=== PATIENT | female | born 1970 | race American Indian/Alaskan Native ===

== ENCOUNTER 2020-05-02 07:22 | Day surgery (SDC) | payer BC ==
[~2020-05-02 07:22] MED LIST: ACETAMINOPHEN 500 MG TAB PO SCH; LACTATED RINGERS 1,000 ML IV SCH; MIDAZOLAM 2 MG/2 ML INJ IV NR
[2020-05-02] MEDS ORDERED: HYDROcodone/ACETAMINOPHEN 5-325 MG TAB PO PRN (08:15)
[2020-05-02] MEDS ORDERED: ONDANSETRON 4 MG/2 ML INJ IV PRN (08:15)
[2020-05-02] MEDS ORDERED: fentaNYL 100 MCG/2 ML INJ IV PRN (08:15)
--- NOTE | 2020-05-02 08:15 | Anesthesia Day of Surgery ---
Anesthesia Day of Surgery - Day of Surgery Patient Examined: Yes Patient H&P Reviewed: Yes Patient is NPO: Yes
--- NOTE | 2020-05-02 08:15 | Anesthesia Consultation ---
Anesthesia Consult and Med Hx Date of service: 05/02/20 - Airway Anesthetic Teeth Evaluation: Good ROM Head & Neck: Adequate Mental/Hyoid Distance: Adequate Mallampati Class: Class II Intubation Access Assessment: Probably Good - Pre-Operative Health Status ASA Pre-Surgery Classification: ASA2 Proposed Anesthetic Plan: General, MAC - Pre-Anesthesia Comment Pre-Anesthesia Comments: MAC vs GA pending discussion with surgeon regarding extent of intended procedure. - Pulmonary Hx Smoking: No Hx Respiratory Symptoms: No Hx Sleep Apnea: No - Cardiovascular System Hx Hypertension: Yes (took amlodipine this morning) Hx Heart Attack/AMI: No - Central Nervous System CVA: No - Gastrointestinal Hx Gastroesophageal Reflux Disease: No - Endocrine Hx Renal Disease: No Hx Liver Disease: No Hx Non-Insulin Dependent Diabetes: No Hx Thyroid Disease: No - Hematic Hx Anemia: Yes (Fe supplements) - Other Systems Hx Obesity: No - Additional Comments Anesthesia Medical History Comments: No hx anesthetic complications.
[2020-05-02] MEDS ORDERED: ceFAZolin/STERILE WATER 2 GM/20 ML SYRINGE IV NR (11:00)
[2020-05-02] MEDS ORDERED: HYDROmorphone 1 MG/1 ML INJ ONE (11:34)
[2020-05-02] MEDS ORDERED: MIDAZOLAM 2 MG/2 ML INJ ONE (11:34)
[2020-05-02] MEDS ORDERED: propofoL 200 MG/20 ML VIAL IV ONE ×2 (11:34→12:39)
[2020-05-02] MEDS ORDERED: LIDOCAINE MPF (2%) 20 MG/1 ML VIAL 5 ML ONE (11:35)
[2020-05-02] MEDS ORDERED: LIDOCAINE (1%) 10 MG/1 ML VIAL 20 ML MDV ONE (11:46)
[2020-05-02] MEDS ORDERED: BUPIVACAINE/PF (0.25%) 2.5 MG/ML 30 ML VIAL INFILTRATI ONE ×2 (11:47→12:26)
[2020-05-02] MEDS ORDERED: LIDOCAINE (1%) 10 MG/1 ML VIAL 20 ML MDV INFILTRATI ONE (12:26)
[2020-05-02] MEDS ORDERED: SODIUM CHLORIDE 0.9% IRR 1,500 ML BOTTLE IR ONE (12:26)
[2020-05-02] MEDS ORDERED: KETOROLAC 30 MG/1 ML INJ ONE (13:05)
[2020-05-02] MEDS ORDERED: ONDANSETRON 4 MG/2 ML INJ ONE (13:16)
--- NOTE | 2020-05-02 13:16 | Short Stay Summary ---
Short Stay Documentation Date of service: 05/02/20 - History Principal diagnosis: soft tissue mass anterior left shoulder and right flank H&P: obtained from office - Allergies and Medications Current Medications: Allergies No Known Allergies Allergy (Verified 04/21/20 10:27) Home Medications Medication Instructions Recorded Confirmed Last Taken Type Amlodipine Benzoate 10 mg PO DAILY 04/21/20 05/02/20 05/02/20 05:00 History Ferrous Sulfate 1 cap PO DAILY 04/21/20 05/02/20 05/01/20 09:00 History Active Medications Acetaminophen (Acetaminophen 500 Mg Tab) 1,000 mg PO PREOP MAREN Stop: 05/02/20 23:00 Last Admin: 05/02/20 08:20 Dose: 1,000 mg Documented by: Hydrocodone Bitart/Acetaminophen (Hydrocodone/Acetaminophen 5-325 Mg Tab) 2 each PO ONCE PRN PRN Reason: Pain, Moderate (4-6) Stop: 05/02/20 16:00 Cefazolin Sodium (Cefazolin/Sterile Water 2 Gm/20 Ml Syringe) 2 gm IV PREOP NR Stop: 05/02/20 23:00 Fentanyl (Fentanyl 100 Mcg/2 Ml Inj) 50 mcg IV Q5MIN PRN PRN Reason: Pain , Severe (7-10) Stop: 05/02/20 23:00 Lactated Ringer's (Lactated Ringers) 1,000 mls @ 100 mls/hr IV DIRECT MAREN Stop: 05/02/20 23:59 Last Admin: 05/02/20 08:15 Dose: 100 mls/hr Documented by: Midazolam HCl (Midazolam 2 Mg/2 Ml Inj) 2 mg IV PREOP NR Stop: 05/02/20 23:00 Last Admin: 05/02/20 08:20 Dose: 2 mg Documented by: Ondansetron HCl (Ondansetron 4 Mg/2 Ml Inj) 4 mg IV ONCE PRN PRN Reason: Nausea And Vomiting Stop: 05/02/20 16:00 - Brief post op/procedure progress note Date of procedure: 05/02/20 Pre-op diagnosis: soft tissue mass left anterior shoulder and right flank Post-op diagnosis: same Procedure: excision soft tissue mass left anterior shoulder and right flank Anesthesia: MAC, local Findings: 1. 8+ cm lobulated STM of left anterior shoulder - 3 pieces 2. 4.5 cm lobulated STM right flank Surgeon: JOSE TANG Estimated blood loss: minimal Pathology: list (1. soft tissue mass left anterior shoulder 2. soft tissue mass right flank) Specimen disposition: to lab Condition: stable - Hospital course Hospital course: Pt observed in PACU and discharged to home in stable condition when criteria met - Disposition Condition at discharge: Good Disposition: DC- TO HOME OR SELFCARE Short Stay Discharge Plan Activity: no restrictions Diet: regular Wound: open to air, per your surgeon's advice (You may shower tomorrow, pat incisions dry, do not scrub or rub skin glue.) Follow up with: PRIMARY CARE, [Primary Care Provider] - 7 Days JOSE TANG DO [Staff Physician] - 14 Days Prescriptions: HYDROcodone/APAP 5-325 [[place] 5-325 mg TAB] 1 each PO Q6H PRN #20 tablet PRN Reason: Pain, Moderate (4-6)
[2020-05-02 14:25] VITALS: BP 141/76
--- NOTE | 2020-05-02 14:28 | Post Anesthesia Evaluation ---
- Post Anesthesia Evaluation Patient Participated: Yes Airway Patent: Yes Stable Respiratory Function: Yes Nausea/Vomiting: No Temp > 96.8F: Yes Pain Manageable: Yes Adequeate Hydration: Yes Anesthesia Complications: No
--- NOTE | 2020-05-02 14:54 | Operative Report ---
Operative Report Operative Report: Date of procedure: 05/02/20 Pre-op diagnosis: soft tissue mass left anterior shoulder and right flank Post-op diagnosis: same Procedure: excision soft tissue mass left anterior shoulder and right flank Anesthesia: MAC, local Findings: 1. 8+ cm lobulated STM of left anterior shoulder - 3 pieces 2. 4.5 cm lobulated STM right flank Surgeon: JOSE TANG Estimated blood loss: minimal Pathology: list (1. soft tissue mass left anterior shoulder 2. soft tissue mass right flank) Specimen disposition: to lab Condition: stable Hospital course: Pt observed in PACU and discharged to home in stable condition when criteria met Indication: Patient is a 50-year-old female who presented to the office for evaluation of a soft tissue mass of her left anterior shoulder as well as the right flank. The patient had a history of excision of a lipoma from the left anterior shoulder several years ago but states that it recurred. The patient requested excision. All risk, benefits, alternatives to surgery were discussed with the patient questions answered. She was consented for excision of the soft tissue mass of the left anterior shoulder and right flank. Patient was identified in the preoperative area and the site marked. Procedure in detail: Patient was identified in the preoperative area, taken back to the operating room, placed on the operating room table in supine position. After anesthesia was induced, the left anterior shoulder was prepped and draped in usual sterile fashion a timeout was performed. Local anesthetic was infiltrated to skin at the intended incision site. And old scar was noted at the lateral aspect of the palpable border of the soft tissue mass. A transverse incision was made over the soft tissue mass using a 15 blade. Dissection was carried down through skin subcutaneous tissue using electrocautery until the mass was encountered. Mass was circumferentially dissected free from the surrounding tissue using a combination of blunt dissection with a hemostat and electrocautery. The mass was lobulated and fatty consistent with a lipoma. Once it was completely dissected it was removed from the wound and measured at approximately 8 cm. Upon further palpation of the wound bed there was an additional soft tissue mass palpated close to the area of the scar. This was also circumferentially dissected and removed from the wound in 2 pieces. These soft tissue masses were passed off the table as a specimen. The wound was then checked for hemostasis which was carefully ensured. The wound was irrigated with saline. Once hemostasis was ensured, the wound was closed in a layered fashion. The deep layer was closed with a running 3-0 Vicryl stitch. The dermal layer was closed using interrupted 3-0 Vicryl stitches. The skin was approximated using 4-0 Monocryl subcuticular stitch and skin glue. I then turned my attention to the soft tissue mass of the right flank. The drapes were taken down and the patient placed in lateral decubitus position with the right side up. All bony prominences were padded appropriately. The right flank in the area of the mass was identified by the barbara and prepped and draped in usual sterile fashion. Local anesthetic was infiltrated to skin at the intended incision site. A transverse incision was made using a 15 blade over the area of the mass and dissection carried down through the skin and subcutaneous tissue using electrocautery. The mass was encountered and circumferentially dissected free from the surrounding tissue using a combination of blunt dissection and electrocautery. Once the mass was circumferentially freed it was removed from the wound and measured at 4.5 cm. The mass appeared lobulated and fatty consistent with a lipoma. This was passed off the table as a specimen. The wound was then irrigated hemostasis very carefully ensured. The wound was then closed in layered fashion. The deep layer was approximated using a running 3-0 Vicryl stitch. The deep dermal layer was approximated using 3-0 Vicryl interrupted stitches. The skin was approximated using 4-0 Monocryl running subcuticular stitch and skin glue. At the end of the case, all sponge, instrument, sharp counts were correct 2. The patient was awoken from anesthesia and taken to PACU in stable condition.
== END 2020-05-02 07:23 | disposition home or self-care (01) ==
LOC: OR 07:22
PROVIDERS: ATTEND Surgery
DX: R22.2 Localized swelling, mass and lump, trunk (principal); R22.32 Localized swelling, mass and lump, left upper limb; C49.12 Malignant neoplasm of connective and soft tissue of left upper limb, including shoulder; D17.1 Benign lipomatous neoplasm of skin and subcutaneous tissue of trunk; I10 Essential (primary) hypertension; D64.9 Anemia, unspecified; Z98.890 Other specified postprocedural states; Z79.899 Other long term (current) drug therapy; Z98.891 History of uterine scar from previous surgery; Z72.89 Other problems related to lifestyle
CPT/HCPCS: 21931; 23071; 36415; 81025; 88304; 88307; J0690; J1170; J1885; J2250; J2405; J2704; J7120